=== PATIENT | female | born 1970 | race Caucasian/White ===

== ENCOUNTER 2022-05-02 21:01 | Emergency (ER) | payer OTHER ==
[~2022-05-02] VITALS: Ht 175.3 cm; Wt 81.6 kg
[2022-05-02 21:05] VITALS: BP 145/85
[2022-05-02 21:20] LABS: BASOPHILS % (AUTO) 0.3 % (0.0-5.0); EOSINOPHILS % (AUTO) 0.6 % (0.0-8.0); HEMATOCRIT 44.6 % (36-48); MEAN CORPUSCULAR HEMOGLOBIN 30.4 pg (27.0-33.0); MEAN CORPUSCULAR HGB CONC 33.6 g/dL (32.0-36.0); MEAN CORPUSCULAR VOLUME 90.3 fL (79-99); MONOCYTES % (AUTO) 6.3 % (3.0-13.0); NEUTROPHILS % (AUTO) 69.5 % (40.0-77.0); PLATELET COUNT (AUTO) 249 K/uL (130-400); RED BLOOD CELL COUNT(AUTO) 4.94 MIL/uL (4.00-5.50); RED CELL DISTRIBUTION WIDTH 12.5 % (11.0-15.5)
[2022-05-02 21:34] LABS: CREATININE 0.8 mg/dL (0.5-1.5); POTASSIUM 3.2 mmol/L (3.5-5.1)
[2022-05-02] MEDS ORDERED: CARV6.25 PO (21:34)
[2022-05-02] MEDS ORDERED: RIVA2.5T PO (21:37)
[2022-05-02 21:39] LABS: ALBUMIN 4.2 g/dL (3.5-5.0); BILIRUBIN,TOTAL 0.4 mg/dL (0.2-1.0); TOTAL PROTEIN, SERUM 7.8 g/dL (6.0-8.3)
[2022-05-02] MEDS ORDERED: KCL 20 MEQ ERTAB PO STA (21:51)
[2022-05-02] MEDS ORDERED: ACET-3194 PO (22:03)
[2022-05-02] MEDS ORDERED: ORPH100 PO (22:03)
== END 2022-05-02 22:34 | disposition home or self-care (01) ==
LOC: EDH 21:01
DX: R07.89 Other chest pain (principal); E87.6 Hypokalemia; F41.9 Anxiety disorder, unspecified; I48.91 Unspecified atrial fibrillation; Z79.899 Other long term (current) drug therapy; Z98.890 Other specified postprocedural states
CPT/HCPCS: 36415; 71045; 80053; 84484; 85025; 93005